=== PATIENT | female | born 1980 | race Caucasian/White ===

== ENCOUNTER 2016-10-22 19:21 | Emergency (ER) | payer OTHER ==
[~2016-10-22] VITALS: Ht 165.1 cm; Wt 61.2 kg
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
[2016-10-22] MEDS ORDERED: IBUPROFEN 400 MG TABLET ONE (19:56)
[2016-10-22] MEDS ORDERED: IBUPROFEN 400 MG TABLET PO ONE (20:00)
--- NOTE | 2016-10-22 20:41 | NUR ---
Patient discharged to home in stable condition. Written and verbal after care instructions given. Patient verbalizes understanding of instruction. ambulatory with a steady gait noted. pt aaox4 no acute distress noted, resp even and unlabored.
[2016-10-22 20:46] VITALS: BP 121/61
== END 2016-10-22 20:47 | disposition home or self-care (01) ==
LOC: ER 19:22
DX: S16.1XXA Strain of muscle, fascia and tendon at neck level, initial encounter (principal); S40.011A Contusion of right shoulder, initial encounter; V49.9XXA Car occupant (driver) (passenger) injured in unspecified traffic accident, initial encounter; Y93.89 Activity, other specified; Y92.89 Other specified places as the place of occurrence of the external cause; Y99.9 Unspecified external cause status
CPT/HCPCS: 70450; 72125; 73030; 84703; 99284; A4606; Z7610